=== PATIENT | female | born 1980 | race Two or more races ===

== ENCOUNTER 2018-05-18 12:05 | Outpatient (CLI) | payer OTHER | END 2018-05-18 12:15 | disposition home or self-care (01) | LOC: SONOGRAMA 12:05 | DX: Z34.01 Encounter for supervision of normal first pregnancy, first trimester (principal) ==

== ENCOUNTER 2018-09-05 09:39 | Outpatient (CLI) | payer OTHER | END 2018-09-05 09:44 | disposition home or self-care (01) | LOC: SONOGRAMA 09:39 → MAMO-SONO 09:45 | DX: O09.521 Supervision of elderly multigravida, first trimester (principal); O09.523 Supervision of elderly multigravida, third trimester ==

== ENCOUNTER 2020-05-26 14:50 | Outpatient (CLI) | payer OTHER | END 2020-05-26 15:09 | disposition home or self-care (01) | LOC: TOM 14:50 | PROVIDERS: ATTEND Urology | DX: N20.1 Calculus of ureter (principal) ==

== ENCOUNTER 2020-06-10 09:25 | Outpatient (CLI) | payer OTHER ==
[2020-06-12] MEDS ORDERED: [UNRECOGNIZED DRUG - OTHER] PO (15:54)
[2020-06-12] MEDS ORDERED: PROCRIT20000 UNIT IV (15:55)
== END 2020-06-10 09:44 | disposition home or self-care (01) ==
LOC: RAD 09:25
PROVIDERS: ATTEND Urology
DX: N20.1 Calculus of ureter (principal)

== ENCOUNTER 2020-06-17 05:30 | Day surgery (SDC) | payer OTHER ==
[~2020-06-17 05:30] MED LIST: PROCRIT20000 UNIT IV; [UNRECOGNIZED DRUG - OTHER] PO
== END 2020-06-17 11:40 | disposition home or self-care (01) ==
LOC: CIR.AMB 05:30
PROVIDERS: ATTEND Urology
DX: N20.1 Calculus of ureter (principal); Z20.828 Contact with and (suspected) exposure to other viral communicable diseases

== ENCOUNTER → 2020-06-29 | Outpatient (CLI) | payer OTHER | END | disposition home or self-care (01) | LOC: SONOGRAMA 14:43 | PROVIDERS: ATTEND Urology | DX: N20.1 Calculus of ureter (principal) ==